=== PATIENT | male | born 1990 | race Caucasian/White ===

== ENCOUNTER 2022-05-12 14:02 | Emergency (ER) | payer OTHER, SELFPAY ==
--- NOTE | 2022-05-12 14:13 | ED.NURSE ---
left before being triaged
== END 2022-05-12 14:19 | disposition left against medical advice (07) ==
LOC: ED 14:18
PROVIDERS: Emergency Provider Family Medicine
DX: Z53.21 Procedure and treatment not carried out due to patient leaving prior to being seen by health care provider (principal)